=== PATIENT | female | born 1995 | race African-American/Black ===

== ENCOUNTER 2020-05-03 20:02 | Emergency (ER) | payer OTHER ==
--- NOTE | 2020-05-03 20:45 | ER Document Report ---
ED Medical Screen (RME) - General Chief Complaint: Diarrhea Stated Complaint: DIARRHEA/CRAMPING Time Seen by Provider: 05/03/20 20:39 Mode of Arrival: Ambulatory Information source: Patient Notes: 24-year-old female presents to ED for abdominal cramping and diarrhea x2 days. She states she has had similar stools about her rectum as well. She states she has had no nausea vomiting or fever. States she does not smoke she drinks about once a week and does not use any drugs. She states the only past medical history she has is gastritis. I have viewed her medical history and her height weight and vital signs. I have greeted and performed a rapid initial assessment of this patient. A comprehensive ED assessment and evaluation of the patient, analysis of test results and completion of medical decision making process will be conducted by an additional ED providers. Past Medical History - Past Medical History Cardiac Medical History: Reports: None Pulmonary Medical History: Reports: None EENT Medical History: Reports: None Neurological Medical History: Reports: None Endocrine Medical History: Reports: None Renal/ Medical History: Reports: None Malignancy Medical History: Reports: None GI Medical History: Reports: Hx Gastritis Musculoskeltal Medical History: Reports None Skin Medical History: Reports None Psychiatric Medical History: Reports: None Infectious Medical History: Reports: None Surgical Hx: Negative Past Surgical History: Reports: None - Immunizations Immunizations up to date: Yes Hx Diphtheria, Pertussis, Tetanus Vaccination: Yes Physical Exam - Vital signs Vitals: Temp Pulse Resp BP Pulse Ox 98.8 F 72 18 154/89 H 99 05/03/20 20:39 05/03/20 20:39 05/03/20 20:39 05/03/20 20:39 05/03/20 20:39 Course - Vital Signs Vital signs: Temp Pulse Resp BP Pulse Ox 98.8 F 72 18 154/89 H 99 05/03/20 20:39 05/03/20 20:39 05/03/20 20:39 05/03/20 20:39 05/03/20 20:39
[2020-05-03 21:44] LABS: ABSOLUTE BASOPHILS # (AUTO) 0.1 10^3/uL (0.0-0.2); ABSOLUTE EOSINOPHILS # (AUTO) 0.2 10^3/uL (0.0-0.6); ABSOLUTE LYMPHOCYTES (AUTO) 2.4 10^3/uL (0.5-4.7); ABSOLUTE MONOCYTES (AUTO) 0.5 10^3/uL (0.1-1.4); ABSOLUTE NEUT (AUTO) 4.5 10^3/uL (1.7-8.2); BASOPHILS % (AUTO) 0.8 % (0-2); EOSINOPHILS % (AUTO) 2.3 % (0-6); HEMATOCRIT 39.3 % (36.0-47.0); HEMOGLOBIN 12.7 g/dL (12.0-15.5); LYMPHOCYTES % (AUTO) 31.4 % (13-45); MEAN CORPUSCULAR HEMOGLOBIN 21.1 pg (27.0-33.4); MEAN CORPUSCULAR HGB CONC 32.4 g/dL (32.0-36.0); MEAN CORPUSCULAR VOLUME 65 fl (80-97); MONOCYTES % (AUTO) 6.9 % (3-13); PLATELET COUNT 179 10^3/uL (150-450); RED BLOOD COUNT 6.04 10^6/uL (3.72-5.28); RED CELL DISTRIBUTION WIDTH 14.8 % (11.5-14.0); SEGMENTED NEUTROPHILS % (AUTO) 58.6 % (42-78); TOTAL CELLS COUNTED % (AUTO) 100 %; WHITE BLOOD COUNT 7.6 10^3/uL (4.0-10.5)
[2020-05-03 22:08] LABS: ALBUMIN 3.9 g/dL (3.5-5.0); ALKALINE PHOSPHATASE 63 U/L (38-126); ANION GAP 8 (5-19); ASPARTATE AMINO TRANSFERASE 22 U/L (14-36); BILIRUBIN,DIRECT 0.3 mg/dL (0.0-0.4); BILIRUBIN,TOTAL 0.3 mg/dL (0.2-1.3); BLOOD UREA NITROGEN 13 mg/dL (7-20); CALCIUM 9.6 mg/dL (8.4-10.2); CARBON DIOXIDE 24 mmol/L (22-30); CHLORIDE 108 mmol/L (98-107); GLUCOSE 99 mg/dL (75-110); POTASSIUM 4.1 mmol/L (3.6-5.0); TOTAL PROTEIN 7.4 g/dL (6.3-8.2)
[2020-05-03 22:54] LABS: APPEARANCE,URINE CLOUDY; BILIRUBIN,URINE NEGATIVE (NEGATIVE); COLOR,URINE RED; GLUCOSE, URINE NEGATIVE (NEGATIVE); KETONES,URINE NEGATIVE (NEGATIVE); LEUKOCYTE ESTERASE,URINE TRACE (NEGATIVE); NITRITE,URINE NEGATIVE (NEGATIVE); PROTEIN,URINE 100 mg/dL (NEGATIVE); URINE SPECIFIC GRAVITY 1.025; UROBILINOGEN,URINE NEGATIVE mg/dL (<2.0)
--- NOTE | 2020-05-03 23:46 | ER Document Report ---
ED GI/ - General Chief Complaint: Abdominal Pain Stated Complaint: DIARRHEA/CRAMPING Time Seen by Provider: 05/03/20 20:39 Mode of Arrival: Ambulatory Notes: Patient is a 24-year-old female who comes to the emergency department for chief complaint of abdominal cramping, diarrhea, and vaginal bleeding since yesterday. She states at first she just had diarrhea, she states she is having very frequent diarrhea episodes which is watery, she states she is having over 10 episodes a day. She also states that she started having vaginal bleeding and cramping. She denies nausea, vomiting, fever, recent travel, suspicious foods, recent antibiotics. She denies any daily prescribed medications. - Related Data Allergies/Adverse Reactions: No Known Allergies Allergy (Verified 05/03/20 23:16) Past Medical History - General Information source: Patient - Social History Smoking Status: Former Smoker Frequency of alcohol use: None Drug Abuse: None Lives with: Family Family History: Reviewed & Not Pertinent Patient has homicidal ideation: No - Past Medical History Cardiac Medical History: Reports: None Pulmonary Medical History: Reports: None EENT Medical History: Reports: None Neurological Medical History: Reports: None Endocrine Medical History: Reports: None Renal/ Medical History: Reports: None Malignancy Medical History: Reports: None GI Medical History: Reports: Hx Gastritis Musculoskeletal Medical History: Reports None Skin Medical History: Reports None Psychiatric Medical History: Reports: None Infectious Medical History: Reports: None Surgical Hx: Negative Past Surgical History: Reports: None - Immunizations Immunizations up to date: Yes Hx Diphtheria, Pertussis, Tetanus Vaccination: Yes Review of Systems - Review of Systems Constitutional: No symptoms reported EENT: No symptoms reported Cardiovascular: No symptoms reported Respiratory: No symptoms reported Gastrointestinal: See HPI Genitourinary: No symptoms reported Female Genitourinary: See HPI Musculoskeletal: No symptoms reported Skin: No symptoms reported Hematologic/Lymphatic: No symptoms reported Neurological/Psychological: No symptoms reported Physical Exam - Vital signs Vitals: Temp Pulse Resp BP Pulse Ox 98.8 F 72 18 154/89 H 99 05/03/20 20:39 05/03/20 20:39 05/03/20 20:39 05/03/20 20:39 05/03/20 20:39 - Notes Notes: GENERAL: Alert, interacts well. No acute distress. HEAD: Normocephalic, atraumatic. EYES: Pupils equal, round, and reactive to light. Extraocular movements intact. ENT: Oral mucosa moist, tongue midline. Oropharynx unremarkable. Airway patent. NECK: Full range of motion. Supple. Trachea midline. No lymphadenopathy. LUNGS: Clear to auscultation bilaterally, no wheezes, rales, or rhonchi. No respiratory distress. Non-tender chest wall. HEART: Regular rate and rhythm. No murmur ABDOMEN: Soft, non-tender. Non-distended. Bowel sounds present in all 4 quadrants. GENITOURINARY: Deferred EXTREMITIES: Moves all 4 extremities spontaneously. No edema, normal radial and dorsalis pedis pulses bilaterally. No cyanosis. BACK: no cervical, thoracic, lumbar midline tenderness. No saddle anesthesia, normal distal neurovascular exam. Moves all extremities in full range of motion. NEUROLOGICAL: Alert and oriented x3. Normal speech. Cranial nerves II through XII grossly intact. Strength 5/5 in all extremities. PSYCH: Normal affect, normal mood. SKIN: Warm, dry, normal turgor. No rashes or lesions noted. Course - Re-evaluation Re-evalutation: Patient suddenly reported she needed to have another episode of diarrhea, however she was unable to collect a sample when this was performed. Patient has a soft benign abdomen, she is well-appearing, vital signs unremarkable. CBC, chemistry, urinalysis nonspecific, patient is also currently on her menstrual cycle. She denies any concerns for STDs. Patient is requesting treatment for persistent diarrhea. No recent antibiotics, low suspicion of acute abdomen or serious infection, however because she is having 10+ episodes a day we did decide to treat her and provide her with an option of collecting this and returning this to the emergency department. Patient states appreciation and agreement with plan, stable and well-appearing at time of discharge. - Vital Signs Vital signs: Temp Pulse Resp BP Pulse Ox 97.5 F 67 18 151/109 H 99 05/04/20 00:50 05/04/20 00:50 05/04/20 00:50 05/04/20 00:50 05/04/20 00:50 - Laboratory Result Diagrams: 05/03/20 21:35 05/03/20 21:35 Laboratory results interpreted by me: 05/03/20 05/03/20 05/03/20 21:30 21:35 21:35 RBC 6.04 H MCV 65 L MCH 21.1 L RDW 14.8 H Chloride 108 H Urine Protein 100 H Urine Blood LARGE H Ur Leukocyte Esterase TRACE H Discharge - Discharge Clinical Impression: Abdominal cramping, bilateral lower quadrant Diarrhea Qualifiers: Diarrhea type: unspecified type Qualified Code(s): R19.7 - Diarrhea, unspecified Condition: Stable Disposition: HOME, SELF-CARE Additional Instructions: Your evaluation shows some dehydration, because of your diarrhea and symptoms we are covering you for infectious diarrhea as well, however this could be viral. Drink plenty of fluids, take the Bactrim antibiotic as prescribed, take Toradol if needed for cramping/pain (with food), and you can take medication such as Imodium [id number] for diarrhea if needed. Consider obtaining a sample and bring in this back to the lab for testing (see form). Follow-up with primary care. Return if you worsen including severe worsening pain, vomiting, fever, or any other concerning or worsening symptoms. Prescriptions: Ketorolac Tromethamine [Toradol 10 mg Tablet] 10 mg PO Q8HP PRN #24 tablet PRN Reason: Sulfamethoxazole/Trimethoprim [Bactrim Ds Tablet] 1 each PO BID #14 tablet Forms: Follow-Up Laboratory Testing, Return to Work, Elevated Blood Pressure
[2020-05-03] MEDS ORDERED: OXYCODONE-ACETAMINOPHEN 5-325 MG TABLET PO ONE (23:47)
[2020-05-03] MEDS ORDERED: IBUPROFEN 600 MG TABLET PO ONE (23:47)
[2020-05-03] MEDS ORDERED: PROMETHAZINE HCL 25 MG TABLET PO ONE (23:47)
[2020-05-04] MEDS ORDERED: SULFAMETHOXAZOLE/TRIMETHOPRIM 800-160 MG TABLET PO ONE (00:14)
[2020-05-04 00:41] VITALS: BP 151/109
== END 2020-05-04 00:50 | disposition home or self-care (01) ==
LOC: ER 20:02
DX: R19.7 Diarrhea, unspecified (principal); R10.30 Lower abdominal pain, unspecified; N93.8 Other specified abnormal uterine and vaginal bleeding
CPT/HCPCS: 36415; 80053; 81001; 83690; 84702; 85025; 87086; 99283